=== PATIENT | male | born 1980 | race Hispanic/Latino ===

== ENCOUNTER 2023-05-21 19:48 | Emergency (ER) | payer MEDICARE ==
[~2023-05-21] VITALS: Ht 160 cm; Wt 99.8 kg
[2023-05-21 19:50] VITALS: BP 142/92
[2023-05-21] MEDS ORDERED: ALBUTEROL 0.083% 2.5 MG/3 ML INH IH PRN (21:30)
[2023-05-21 21:36] LABS: BASOPHILS % (AUTO) 1.2 % (0.0-5.0); EOSINOPHILS % (AUTO) 2.6 % (0.0-8.0); HEMATOCRIT 47.3 % (42-54); LYMPHOCYTES % (AUTO) 25.7 % (21.0-51.0); MEAN CORPUSCULAR HEMOGLOBIN 31.3 pg (27.0-33.0); MEAN CORPUSCULAR HGB CONC 34.5 g/dL (32.0-36.0); MONOCYTES % (AUTO) 3.8 % (3.0-13.0); NEUTROPHILS % (AUTO) 66.3 % (40.0-77.0); PLATELET COUNT (AUTO) 231 K/uL (130-400); RED CELL DISTRIBUTION WIDTH 12.7 % (11.0-15.5); WHITE BLOOD COUNT (AUTO) 8.5 K/uL (4.8-10.8)
[2023-05-21 21:57] LABS: ALBUMIN 4.6 g/dL (3.5-5.0); CREATININE 1.1 mg/dL (0.5-1.5); POTASSIUM 4.2 mmol/L (3.5-5.1); TOTAL PROTEIN, SERUM 8.1 g/dL (6.0-8.3)
[2023-05-21] MEDS ORDERED: ALBU90AE2 IH (23:02)
[2023-05-21] MEDS ORDERED: ALBU2.5V2 IH (23:02)
[2023-05-21 23:27] LABS: APPEARANCE,URINE CLEAR (CLEAR); BILIRUBIN,URINE NEGATIVE (NEGATIVE); COLOR,URINE LIGHT-YELLOW (YELLOW); GLUCOSE, URINE (UA) NEGATIVE (NEGATIVE); KETONES,URINE NEGATIVE (NEGATIVE); LEUKOCYTE ESTERASE ,URINE NEGATIVE Leu/uL (NEGATIVE); NITRATE,URINE NEGATIVE (NEGATIVE); OCCULT BLOOD,URINE NEGATIVE (NEGATIVE); PROTEIN,URINE NEGATIVE (NEGATIVE); UROBILINOGEN,URINE 0.2 mg/dL (0.2-1.0)
== END 2023-05-21 23:24 | disposition home or self-care (01) ==
LOC: EDH 19:48
DX: J45.909 Unspecified asthma, uncomplicated (principal); R05.9 Cough, unspecified; Z90.49 Acquired absence of other specified parts of digestive tract
CPT/HCPCS: 36415; 71045; 80053; 81003; 83735; 83880; 84484; 85025; 87880; 93005; 94640

== ENCOUNTER 2025-03-19 14:49 | Emergency (ER) | payer MEDICARE, OTHER ==
[~2025-03-19] VITALS: Ht 167.6 cm; Wt 111.1 kg
[~2025-03-19 14:49] MED LIST: ALBU2.5V2 IH; ALBU90AE3 IH
[2025-03-19] MEDS ORDERED: HYDROcodone/APAP 5/325 1 TAB TABLET PO STA (15:18)
[2025-03-19] MEDS ORDERED: ibuPROFEN 800 MG TAB PO STA (15:18)
[2025-03-19 15:33] VITALS: BP 150/106; PULSE 89; RESP 16; TEMP 99; O2SAT 97
--- NOTE | 2025-03-19 15:53 | HMCIMG ---
Exam Type: KNEE 3VWS LT Clinical Information: fall Comparison: None Findings: The bone examination is unremarkable. No fractures or dislocations are seen. No radiopaque foreign bodies are noted. Soft tissues are preserved. IMPRESSION: Normal examination.
--- NOTE | 2025-03-19 16:02 | HMCIMG ---
Exam Type: ELBOW COMP 3+VWS LT Clinical Information: fall Comparison: None Findings: The bone examination is unremarkable. No fractures or dislocations are seen. No radiopaque foreign bodies are noted. Soft tissues are preserved. IMPRESSION: Normal examination.
--- NOTE | 2025-03-19 16:16 | ERN ---
ED Note History of Present Illness Stated Complaint: LEFT ARM INJURY, LEFT LEG INJURY,FEVER Chief Complaint: Arm Swelling/Redness Time Seen by MD: 15:04 Time Seen by Midlevel: 15:10 Dictation: 44 Male coming in with complaints of left elbow pain and left knee pain after falling from the the step of a semi truck Allergies: Coded Allergies: diphenhydramine (Unverified Allergy, Unknown, 05/21/23) Home Meds Active Scripts Methylprednisolone (Medrol) 4 Mg Tab.ds.pk, 1 TAB PO AD for 6 Days, #21 TAB 0 Refills 6 on day 1 then reduce by one tablet daily until gone Prov:ELENO CORMIER PUMPMAN 03/19/25 Albuterol Sulfate (Albuterol Sulfate) 2.5 Mg/3 Ml Vial.neb, 2.5 MG IH Q4HPRN PRN for WHEEZING, #180 INH Prov:FRANKO SIMMONS V HYDRAULIC PRESS TENDER 05/21/23 Albuterol Sulfate (Proair Digihaler) 90 Mcg Aer.pw.bas, 90 MCG IH QID, #1 INHALER Prov:FRANKO SIMMONS V HYDRAULIC PRESS TENDER 05/21/23 Past Medical History Past Medical History: Asthma, Other Additional Past Medical Hx: GOUT, THYROID Surgical History: Cholecystectomy Review of System Dictation Constitutional: Negative for fever,chills, and weight loss Eyes: Negative for injury, pain,redness, and discharge ENT: Negative for injury,pain or swelling Cardiovascular: Negative for chest pain, palpitations, and edema Respiratory: Negative for shortness of breath, cough, and wheezing, Abdomen/GI: Negative for abdominal pain, nausea, vomiting, diarrhea, and constipation Back: Negative for injury and pain : Negative for injury, bleeding and discharge MS/Extremity: Complaining of left elbow and left knee Skin: Negative for rash, and discoloration Neuro: Negative for headache, weakness, numbness, tingling, and seizure Psych: Negative for suicide ideation, homicidal ideation, and hallucinations Review of Systems: was completed Initial Vital Sign VS Vital Signs Date Time Temp Pulse Resp B/P (MAP) Pulse Ox O2 Delivery O2 Flow Rate FiO2 03/19/25 14:54 99.0 89 16 150/106 97 Room Air 0 03/19/25 15:33 21 Physical Exam Dictation General: awake, alert, NAD Head/Face: Normocephalic, atraumatic Eyes: PERRL, EOMI, vision at baseline ENT: oral cavity clear, TMs clear, no signs of infection Neck: Trachea midline, supple, no nuchal rigidity Cardiovascular: RRR, normal S1/S2, No MRGs, no JVD Respiratory: CTAB, no respiratory distress, No rales or wheezes Abdomen: Soft, non-tender, non-distended, normal bowel sounds, no guarding or rebound. Skin: Warm, dry, normal turgor, no rash MS/Extremity: Pulses equal, no cyanosis, neurovascular intact, FROM, ecchymosis noted to the left elbow, no swelling or ecchymosis noted to the knee. Neuro: COAx4, GCS 15, strength 5/5, CN 2-12 intact, normal cerebellar exam, normal gait, Psych: Normal behavior, mood, and affect normal Results (Laboratory/Radiology) X-RAY Comment: [place] [id number] [address] IMAGING REPORT Signed PATIENT: YAYA MYLES MR#: [id number] : 1980 SEX: M AGE: 44 LOCATION: ED ORDER 18 STATUS: REG ER HOME FOR INCURABLES REPORT#: [id number] SERVICE 17 REASON: fall ORDERING PHYSICIAN: ELENO CORMIER NP PROCEDURE: KNEE 3V LT - KNEE 3VWS LT Exam Type: KNEE 3VWS LT Clinical Information: fall Comparison: None Findings: The bone examination is unremarkable. No fractures or dislocations are seen. No radiopaque foreign bodies are noted. Soft tissues are preserved. IMPRESSION: Normal examination. DICTATED BY: AMADOU ELIZONDO MD DATE: 03/19/251550 ELECTRONICALLY SIGNED BY: AAMDOU ELIZONDO MD [place] [address] [address] IMAGING REPORT Signed PATIENT: YAYA MYLES MR#: [id number] : 1980 SEX: M AGE: 44 LOCATION: ED ORDER 18 STATUS: REG ER REPORT#: [id number] SERVICE 1518 REASON: fall ORDERING PHYSICIAN: ELENO CORMIER NP PROCEDURE: ELB3VW LT - ELBOW COMP 3+VWS LT Exam Type: ELBOW COMP 3+VWS LT Clinical Information: fall Comparison: None Findings: The bone examination is unremarkable. No fractures or dislocations are seen. No radiopaque foreign bodies are noted. Soft tissues are preserved. IMPRESSION: Normal examination. DICTATED BY: AMADOU ELIZONDO MD DATE: 03/19/25 155 ELECTRONICALLY SIGNED BY: AMADOU ELIZONDO MD DATE: 03/19/25 1602 ED Course ED Course Orders Procedure Category Date Status Time Elbow Comp 3+Vws Lt RAD 03/19/25 Resulted 15:18 Knee 3vws Lt RAD 03/19/25 Resulted 15:18 Hydrocodone/Apap PHA 03/19/25 Complete 5/325 (Potter 5/325mg) 15:18 Ibuprofen 800 Mg Tab PHA 03/19/25 Complete (Motrin) 15:18 Sling LINDA 03/19/25 Complete 16:10 Place Knee Imobilizer CPOE 03/19/25 Transmitted To: (Er) 16:10 Current Medications Medications (Trade) Dose Ordered Sig/Latesha Route PRN Reason Start Time Stop Time Status Last Admin Dose Admin Acetaminophen/ Hydrocodone Bitart (NORco 5/325MG) 1 tab ONCE STAT PO 03/19/25 15:18 03/19/25 15:22 DC Ibuprofen (moTRIN) 800 mg ONCE STAT PO 03/19/25 15:18 03/19/25 15:22 DC Vital Signs Date Time Temp Pulse Resp B/P (MAP) Pulse Ox O2 Delivery O2 Flow Rate FiO2 03/19/25 15:33 99.0 89 16 150/106 97 Room Air* 0 21 03/19/25 14:54 99.0 89 16 150/106 97 Room Air 0 Medical Decision Making MDM MDM: 44 Male coming in with complaints of left elbow pain and left knee pain after falling from the the step of a semi truck. Patient has a history of gout. Patient states he takes allopurinol. Denies any LOC, no blood thinners. Patient states this has been on 03/15/25, states he has been" sleeping" and just came to be evaluated today. Patient states he went to [facility] before coming here in states the staff there was being really route decided to leave and come here to be evaluated. X-ray of the elbow and knee no acute finding. Patient states he had a fever today was concerned for infection. Added a blood work to rule out infection however patient refused all the blood work and states that he would rather just follow up tomorrow with his PCP in his requesting a prescription for steroids. Differential diagnosis: Elbow contusion, elbow fracture, knee fracture, knee contusion Rationale: Tests considered and ordered secondary to shared decision making include: Previous outside records reviewed: Old ER visits. Risk of complication and/or morbidity or mortality of patient management: None Medications-Per medication reconciliation Need for hospitalization: Patient does not meet criteria for hospitalization. Need for emergency major/minor surgery: No There are no social concerns with this patient. Prescription drug management Prescriptions will include symptomatic care Patient's prior external medical records from other ER visits were reviewed by me as indicated. Prior testing and results from previous visits were reviewed. Prior tests were taken into account with medical decision making and resource utilization, independent historian/historians were used to obtain complete medical history. I independently interpreted the test that were performed, results were reviewed by me and considered findings on radiology if ordered. Medical management and examination interpretation discussions were had by me with other qualified healthcare professionals as indicated for the patient's care. DX & DISP Disposition: Discharge Departure Impression: Primary Impression: Elbow contusion Additional Impression: Knee contusion Condition: Stable Scripts Methylprednisolone (Medrol) 4 Mg Tab.ds.pk 1 TAB PO AD for 6 Days, #21 TAB 0 Refills 6 on day 1 then reduce by one tablet daily until gone Prov: ELENO CORMIER NP 03/19/25 Referrals: SELF,REFERRAL (PCP) Time of Disposition: 16:35 I have reviewed the case, and I agree with, Diagnosis and Plan I performed a substantive portion of the visit. I have reviewed and personally made and approve the management plan that is documented in the notes by myself with LALI/resident. I acknowledged full responsibility for the patient's management plan. ELENO CORMIER NP March 19, 2025 16:16 JAIME DALY DO March 20, 2025 08:18
--- NOTE | 2025-03-19 16:31 | NUR ---
SLING APPLIED TO LT ARM, PT TOLERATED WELL
[2025-03-19] MEDS ORDERED: METH4TAB3 PO (16:35)
--- NOTE | 2025-03-19 16:50 | NUR ---
Patient refuses blood work. He stated he does not need it.
== END 2025-03-19 17:05 | disposition home or self-care (01) ==
LOC: EDH 14:49
DX: S50.02XA Contusion of left elbow, initial encounter (principal); S80.02XA Contusion of left knee, initial encounter; J45.909 Unspecified asthma, uncomplicated; Z90.49 Acquired absence of other specified parts of digestive tract; W20.8XXA Other cause of strike by thrown, projected or falling object, initial encounter; Y93.89 Activity, other specified; Y92.89 Other specified places as the place of occurrence of the external cause; Y99.8 Other external cause status
CPT/HCPCS: 73080; 73562; 99284